=== PATIENT | male | born 1950 | race Caucasian/White ===

== ENCOUNTER 2017-01-27 07:30 | Day surgery (SDC) | payer BC ==
[~2017-01-27] VITALS: Ht 177.8 cm; Wt 80.0 kg
[~2017-01-27 07:30] MED LIST: BACTRIM DS DPS1 TAB PO; PERCOCET 7.5 DP1 TAB PO; PRILOSEC DPS20 MG PO; TYLENOL DPS325 MG PO
[2017-04-07] MEDS ORDERED: COMPAZINE10 MG PO (16:54)
[2017-04-07] MEDS ORDERED: PRILOSEC DPS20 MG PO (16:54)
[2017-04-07] MEDS ORDERED: BENADRYL-DPS50 MG PO ×2 (16:54→17:07)
[2017-04-07] MEDS ORDERED: KLOR-CON M2020 ME1 PO (17:02)
[2017-04-07] MEDS ORDERED: LOPRESSOR DPS50 MG PO (17:02)
[2017-04-07] MEDS ORDERED: DELTASONE DPS10 MG PO (17:02)
[2017-04-07] MEDS ORDERED: XARELTO20 MG PO (17:03)
[2017-04-07] MEDS ORDERED: HUMALOG KW200 UNIT/1 SQ (17:06)
== END 2017-01-27 11:08 | disposition home or self-care (01) ==
LOC: RAD.S 07:30 → EDSTATUS 09:00 → RAD.S 09:00
PROC: 05HM33Z Insertion of Infusion Device into Right Internal Jugular Vein, Percutaneous Approach (ICD-10-PCS; principal; 2017-01-27)
PROC: B513YZA Fluoroscopy of Right Jugular Veins using Other Contrast, Guidance (ICD-10-PCS; principal; 2017-01-27)
PROC: B543ZZA Ultrasonography of Right Jugular Veins, Guidance (ICD-10-PCS; principal; 2017-01-27)
DX: C67.9 Malignant neoplasm of bladder, unspecified (principal); I10 Essential (primary) hypertension; Z79.899 Other long term (current) drug therapy

== ENCOUNTER 2017-03-31 19:02 | Inpatient (IN) | payer BC ==
[~2017-03-31] VITALS: Ht 175.3 cm; Wt 76.5 kg
--- NOTE | ~2017-03-31 | ECH ---
Transthoracic Echocardiography Report (TTE) Demographics Patient Name LIBERTAD BROWN Date of Study 04/03/2017 L Patient Number [id number] Visit Number [id number] Date of 1950 Room Number 531 Accession Number [id number] Gender Male Age 66 year(s) Referring Babar Benitez Field Hand Physician Dania Tejeda Physician Interpreting Dania THOMAS Forest Logistics Manager Physician Libertad Supervising Ordering Physician Miguel Ángel Valdez MD, MD/P Nurse Stress Dam Tender Conclusions Contractility Score Summary At rest the following contractility abnormalities were noted: Hypokinesis of the Apical septal, the Apical lateral, the Apical anterior and the Apical cap segments. Contractility of all other segments appeared normal. Summary Technically fair exam. The estimated left ventricular ejection fraction is 60-65%. Mild segmental wall motion abnormalities noted. Mild left ventricular hypertrophy. No significant valvular abnormalities. Recommendation The patient was given the results of the exam during their hospital stay. Procedure Type of Study TTE procedure:Echo Complete SF. Procedure Date Date: 04/03/2017 Start: 11:06 AM Technical Quality: Adequate visualization Indications:Paroxysmal a-fib. Appropriate Use Criteria: 9 Height: 69 inches Weight: 166 pounds BSA: 1.91 m Rhythm: Atrial fibrillation HR: 78 bpm BP: 117/78 mmHg M-Mode/2D Measurements LV Diastolic Dimension: 3.73 cm LV Systolic Dimension: 3.02 cm LV Septum Diastolic: 1.09 cm LV PW Diastolic: 1.28 cm AO Root Dimension: 2.92 cm Cardiac Output: 3.56 l/min LA Dimension: 2.48 cm Cardiac Index: 1.86 l/min*m RV Diastolic Dimension: 2.5 cm LA volume index: 24 ml/m LVOT: 1.91 cm LVOT VTI: 15.92 cm RV Base: 3.96 cm LV Stroke volume: 45.59 ml RV Mid: 2.49 cm LV Stroke volume index: 23.87 ml/m RV Length: 6.1 cm TAPSE: 1.5 cm TDI-S': 0.9 cm/s Doppler Measurements AV Peak Velocity: 1 m/s MV Peak E-Wave: 0.48 m/s AV Peak Gradient: 4 mmHg MV Peak A-Wave: 1.08 m/s AV Mean Gradient: 2.49 mmHg MV E/A Ratio: 0.45 LVOT Peak Velocity: 0.95 m/s AV Area (Continuity):3.38 cm TR Velocity:2.28 m/s PV Peak Velocity: 0.95 m/s TR Gradient:20.82 mmHg PV Peak Gradient: 3.64 mmHg Estimated RAP:3 mmHg Estimated PASP: 23.82 mmHg Estimated RVSP: 24 mmHg RA Area: 11.54 cm Findings Left Ventricle The left ventricle is normal in size . Mild left ventricular hypertrophy. Diastolic function indeterminate due to patient's arrhythmia. Right Ventricle Normal right ventricle structure and function. Left Atrium Normal left atrial size. Right Atrium Normal right atrial size. Mitral Valve Normal mitral valve structure and function. Trivial mitral regurgitation by color Doppler. Aortic Valve Normal aortic valve structure and function. Tricuspid Valve Normal tricuspid valve structure and function. Trivial tricuspid regurgitation by color Doppler. Pulmonic Valve Normal pulmonic valve structure and function. Pericardial Effusion No evidence of pericardial effusion. Miscellaneous Visualized portions of the aortic root and ascending aorta appear normal in size. Pleural Effusion No evidence of pleural effusion. Contractility Score LV regional wall motion:(0-Non visualized 1-Normal 2-Hypokinesis 3-Akinesis 4-Dyskinesis 5-Aneurysm) Signature
--- NOTE | 2017-04-01 20:34 | ER ---
ADMIT: 03/31/2017 RM/LOC: ER [facility] MR#: [id number] [address] [facility] [address] [place], [place] [address] LIBERTAD BROWN [address] [place] [address] Emergency Room Report SEX: M AGE: 66 : 1950 DATE: 03/31/2017 The patient is a 66-year-old male, recently diagnosed with bladder cancer. He is also diabetic and at this point, checked his blood sugar noticing that he was not acting but looking different and it was above 500, her glucometer was not measuring the right numbers. She states that his face is swollen, his neck is swollen as well and he has high blood sugar. PAST MEDICAL HISTORY: Includes diabetes type 2, renal disease with a bladder cancer. He has been seeing Dr. Lau and have been receiving chemotherapy in the form of cisplatin and Gemzar. He has bilateral knee surgery, a tumor removed from his bladder. He is taking Prilosec, metformin, dexamethasone, and Zofran. ALLERGIES: HE HAS NO ALLERGIES. PHYSICAL EXAMINATION: VITAL SIGNS: Blood pressure 121/97, and varies up to 135/110, heart rate is 107, respirations 17, temp is 97.2, and O2 sats 96%. GENERAL: Mildly anxious. and son at bedside. Alert. HEENT: Normal inspection. SKIN: Cyanotic color. Neck and chest with some rubor as well. RESPIRATION: Chest is nontender. CVS: Tachycardia. NEUROLOGIC: Oriented x4. Mood and affect appropriate. ABDOMEN: Nontender. Not distended. No bruits on the carotids. LABS: Started sepsis workup due to his medical history of cancer. CBC is 5.7 with a hemoglobin of 12 and hematocrit is 35.5. His sodium is 131, BUN is 33, glucose 680, creatinine is 1.0, GFR 58, lactic acid is 2.0. Troponin 0.015 with a CK-MB of 1.6, CK 51. His procalcitonin is 0.67. His urine has ketones 1+ and glucose more than 1000. His pH is 7.548, pCO2 of 25.9, and PO2 of 68. His EKG shows normal sinus rhythm at [address] Jang notified he will finish up with this disposition of the patient as he went for a CTA to rule out PE, and we have no report back. The patient has been receiving fluids. At this time, he is oriented and has returned back to the room after the CT scanner. SACHA King / Jack Jang MD / modl JOB #: [id number] CC: Jack Jang MD, Attending Physician Carter Eckert MD, Family Physician
--- NOTE | 2017-04-02 01:36 | ER ---
ADMIT: 03/31/2017 RM/LOC: ER [facility] MR#: [id number] [address] [place], [place] [address] LIBERTAD BROWN [address] [place] [address] Emergency Room Report SEX: M AGE: 66 : 1950 DATE: 03/31/2017 ADDENDUM: The patient was checked out to me by SACHA King, with final disposition. The patient's labs show he has a significant elevated glucose at this time at 680. He is not in DKA. The patient actually did not carry a definitive diagnosis of diabetes before tonight. He has been on chemo medications and getting dexamethasone with those dosings of his chemo drugs, and recently he has been having high blood sugars for the past several weeks. Apparently, he has been started on metformin within the last 2 weeks at 500 mg and just recently put on a 1000 in the last 24 hours. He comes in today with this generalized redness to his chest, neck, face, urinating a lot, and being thirsty. I discussed the case with Dr. Gonzalez, who is on this evening for Oncology, and does not believe the chemo drugs he is on would be causing elevated blood sugars to the level that we are seeing him now. At this point, with a long weekend coming up, I am not comfortable having the patient go home with a new onset diabetes requiring insulin, and he will be brought into the hospital. I spoke to Dr. Shetty as the patient is a [facility], who will be admitting the patient. DIAGNOSES: 1. New-onset diabetes. 2. Bladder cancer. Jack Jang MD/ gumaro JOB #: [id number] CC: Jack Jang MD, Attending Physician Carter Eckert MD, Family Physician
--- NOTE | 2017-04-03 11:44 | HP ---
ADMIT: 03/31/2017 RM/LOC: 531 [facility] MR#: [id number] [address] [facility] [address] [place], [place] [address] LIBERTAD BROWN [address] [place] [address] History and Physical SEX: M AGE: 66 : 1950 DATE OF SERVICE: CHIEF COMPLAINT: Elevated blood sugars, polyuria, polydipsia, and bladder cancer. HISTORY OF PRESENT ILLNESS: The patient is a 66-year-old white male, who is normally followed by Dr. Carter Eckert at the [facility]. He has recently been diagnosed with bladder cancer in 2016 and has been followed primarily by Dr. Mendez and Dr. Judi nichols in [place] at the Oncology Clinic. He has also had some guidance in his cancer treatment from [facility]. He had bladder surgery in December 2016 to remove the bladder cancer. He has had routine follow-ups and chemotherapy through the Oncology office. In fact, he has completed 7 of his 9 chemotherapy treatments with his last chemo being done on Monday of this past week. Over the past two weeks, the patient has noticed an increase in his thirst and urination. Along with this, he has been excessively fatigued and weak. He has noticed some facial and chest flushing as well. He has had about 20 pounds of weight loss in the past several weeks. His sugars have apparently been elevated when blood work has been done through the Cancer Clinic. He was recently started on metformin 500 mg daily for his elevated sugars. Upon evaluation in the emergency room last night, his sugars were 680. He is admitted for further evaluation and treatment of his hyperglycemia and newly diagnosed diabetes. PAST MEDICAL HISTORY: 1. The patient has had bladder cancer diagnosed in December 2016. 2. New/recently diagnosed type 2 diabetes. 3. Acid reflux. SURGICAL HISTORY: The patient has had previous bilateral quadriceps tendon repairs due to injuries. He has also had bilateral knee scopes. He has had cystoscopy with removal of bladder cancer in December 2016. MEDICATIONS: The patient has been on: 1. Prilosec 20 mg daily at home. 2. Most recently, he was started on metformin 500 mg daily for his elevated sugars. 3. He also uses dexamethasone and Zofran as needed following his chemotherapy treatments. ALLERGIES: NO KNOWN MEDICAL ALLERGIES. FAMILY HISTORY: The patient states parents both had coronary artery disease, and his mother had diabetes. SOCIAL HISTORY: The patient is and lives here in [place]. He is employed at [employer] and has been followed primarily by Dr. Carter Eckert as his regular physician. He is a former smoker who quit about 36 years ago, and is also a previous alcoholic who quit drinking about 36 years ago. ADMIT: 03/31/2017 RM/LOC: 531 [facility] MR#: [id number] [address] [place], [place] [address] [place] [address] History and Physical SEX: M AGE: 66 : 1950 REVIEW OF SYSTEMS: HEENT: The patient has had some blurry vision and visual changes over the past several weeks, but denies ear pain, headache, sore throat, or difficulty swallowing. PULMONARY: No shortness of breath, wheezing, or lung problems. CARDIAC: No history of heart disease. Denies hypertension. No chest pain or palpitations noted. GASTROINTESTINAL: Generalized weakness and poor appetite. He also has heartburn. No abdominal pain. No vomiting or diarrhea. ENDOCRINE: Recently reported elevated blood sugars with suspicion for diabetes. No history of thyroid problems. GENITOURINARY: He has had excessive urination over the past few weeks. No burning or pain. No hematuria. No prior kidney problems. He has had bladder cancer, diagnosed in December 2016. NEUROLOGIC: No history of strokes or seizures. HEMATOLOGIC: No history of blood clots or bleeding disorders. PSYCHIATRIC: No history of depression or anxiety. PHYSICAL EXAMINATION: VITAL SIGNS: Most recent vitals include a temperature of 97.1, pulse 95 and regular, respiratory rate 16, blood pressure 118/74, O2 saturations 97% on room air. GENERAL: The patient is alert and oriented. He answers questions appropriately. Does not appear to be in acute distress. HEENT: Ears clear bilaterally. Oropharynx moist without erythema or tonsillar enlargement. Pupils equally round and reactive to light and accommodation bilaterally. NECK: Supple without lymphadenopathy or JVD. No thyroid enlargement or tenderness. LUNGS: Clear bilaterally without wheezes, rhonchi, or rales. HEART: Regular rate and rhythm without murmur, rub, or gallop. ABDOMEN: Soft, nontender, and nondistended. No masses palpated. EXTREMITIES: With functional range of motion and normal strength. No clubbing, cyanosis, or edema. NEUROLOGIC: No focal deficits. LABORATORY AND X-RAY DATA: Admission EKG showed sinus rhythm without acute ST or T-wave changes. Urinalysis showed greater than 1000 mg/dL of glucose, and 1+ ketones. Urine culture pending. Admission ABG showed a pH of 7.441, pCO2 of 27.2, pO2 of 74.0. Admission sodium a little low at 131, potassium 3.9, BUN 33, creatinine 1.3, glucose 680, AST 26, ALT 48, magnesium 1.9. Creatine kinase 51, MB 1.6, relative index 3.1, troponin I less than 0.015. Lactic acid 2.0, procalcitonin 0.67, INR less than 1.00. Admission CBC showed a white count of 5.7, hemoglobin 12.0, platelet count 224. Chest x-ray showed no acute cardiopulmonary process. A small pulmonary nodule in the left upper lobe was noted. CT scan of the chest was done through the Emergency Department evaluation and showed no pulmonary embolism. There was a large hiatal hernia noted and a 7.4 mm noncalcified left upper lobe pulmonary nodule. Blood cultures pending. Repeat labs done the morning of 04/01, include a white blood cell count of 4.7, hemoglobin 10.6, platelet count 158. ADMIT: 03/31/2017 RM/LOC: 531 [facility] MR#: [id number] [address] [place], [place] [address] MIKHAILL[facility]ERT[facility] WRAY [address] [place] [address] History and Physical SEX: M AGE: 66 : 1950 Sodium 137, potassium 3.6, BUN 28, creatinine 1.1, glucose 300, AST 11, ALT 42, serum ketones negative. C-reactive protein less than 0.29. ASSESSMENT: 1. Bladder cancer (diagnosed December 2016). 2. Poorly controlled diabetes mellitus type 2 (recently diagnosed due to markedly elevated blood sugars). 3. Heartburn. 4. Mild renal insufficiency. 5. Left upper lobe pulmonary nodule (7.[address] scan of the chest). PLAN: The patient has been admitted for management of his blood sugars. Suspect all of his symptoms of weakness, fatigue, polydipsia, polyuria, weight loss have all been related to his markedly elevated blood sugars. We will check a hemoglobin A1c to assess his diabetes status. We will also start sliding scale insulin for his elevated glucose. Diabetic education will be provided to show him how to check his blood sugars at home and he will likely need to continue some sliding scale insulin at home. We will hydrate this patient with IV fluids and will have Oncology see him as well. Libertad Shetty MD/ gumaro JOB #: [id number] CC: Libertad Shetty, Attending Physician Libertad Shetty, Family Physician Carter Eckert MD
--- NOTE | 2017-04-04 06:48 | CO ---
ADMIT: 03/31/2017 RM/LOC: 531 [facility] MR#: [id number] [id number] [place], [place] [address] LIBERTAD BROWN [address] [place] [address] Consultation SEX: M AGE: 66 : 1950 DATE OF CONSULTATION: 04/03/2017 ATTENDING PHYSICIAN: Libertad Shetty CONSULTING PHYSICIAN: Libertad Najera MD REASON FOR CONSULTATION: Atrial fibrillation. HISTORY OF PRESENT ILLNESS: Libertad is a pleasant 66-year-old male, rather seen in consultation from Dr. Shetty regarding atrial fibrillation. Libertad has no prior cardiac history other than he said 12 years ago, he underwent evaluation at the [facility] with an [facility]ogram and stress test, all which were normal. He has been treated since December 2016 for bladder cancer and has been followed by Dr. Mendez and Dr. Lau. He has been undergoing chemotherapy. He has completed 7/9 chemotherapy sessions with the last one being done a week ago. He was admitted with a blood sugar of over 700 and hemoglobin A1c of over 12.4. He has been monitored here and was noted yesterday to be in atrial fibrillation a couple of times with rapid ventricular response. He spontaneously cardioverted back to sinus rhythm both times. He says, he was asymptomatic. He denied any shortness of breath. No lightheadedness. He said that, he did not sense his heart racing or beating irregular. He does have diabetes but denies any history of hypertension. PAST MEDICAL HISTORY: 1. History of bladder cancer, being undergoing chemotherapy since December 2016. 2. Diabetes mellitus type 2. 3. Gastroesophageal reflux disease. PAST SURGICAL HISTORY: History of bilateral quadriceps tendon repairs, bilateral knee scopes. He has had cystoscopy and removal of his bladder cancer in December 2016. MEDICATIONS: Now, he is on Glucophage 1000 mg b.i.d., Lopressor 25 mg b.i.d., Lovenox 80 mg q.12 hours, sliding scale insulin, Lasix 20 mg IV b.i.d., and Protonix b.i.d. ALLERGIES: NO KNOWN DRUG ALLERGIES. FAMILY HISTORY: He says, his father at age 66 of myocardial infarction. He says, his mother at age 74 of heart failure. SOCIAL HISTORY: He is . He lives here in [place]. I follow his in the Cardiology Clinic. He is employed at [employer]. He is a former smoker, quit about 36 years ago. Previous alcoholic, also quit 36 years ago. Denies any illicit drug use. REVIEW OF SYSTEMS: GENERAL: Denies any fever, chills, or sweats. He has had fatigue, undergoing the chemotherapy. ADMIT: 03/31/2017 RM/LOC: 531 [facility] MR#: [id number] [address] [place] [address] [place] [address] Consultation SEX: M AGE: 66 : 1950 HEENT: He has had some blurry vision with his elevated blood sugars. Denies any sore throat or difficulty swallowing. PULMONARY: Denies any shortness of breath. No wheezing. No cough. CARDIAC: Denies palpitations. Denies hypertension. No chest pain. GASTROINTESTINAL: He has had poor appetite and has history of heartburn. Denies any pain. No vomiting. No diarrhea. ENDOCRINE: Recently diagnosed diabetes. Denies any history of thyroid dysfunction. GENITOURINARY: Denies any dysuria or hematuria. He has had frequency. NEUROLOGIC: No history of TIA or strokes. HEMATOLOGIC: Denies any history of blood clots or bleeding disorders. PSYCHIATRIC: Denies any anxiety or depression. PHYSICAL EXAMINATION: VITAL SIGNS: Blood pressure 117/78, pulse 87, respirations 18, temperature 99.7, and oxygen 97% on room air. GENERAL: He is in no acute distress. He is alert, oriented, and appropriate. SKIN: He has a port in the right chest. EYES: Sclerae clear. No xanthelasmas. ENT: Oral mucosa is pink and moist. No jugular venous distention or carotid bruits. CHEST: Respirations are even and unlabored. Lungs are clear to auscultation. HEART: Regular rate and rhythm. Normal S1, S2. No murmurs, rubs or gallops. ABDOMEN: Soft and nontender. MUSCULOSKELETAL: Gait is normal. EXTREMITIES: He has everything normal. PSYCHIATRIC: Alert and oriented. Mood and affect are appropriate. DIAGNOSTIC DATA: EKG shows sinus rhythm this morning with no ST- or T-wave changes. Potassium is 3.2 this morning. Creatinine 1. Magnesium is 1.8. Platelets 95, hemoglobin 10.1, white blood cell count 8. CT of his chest shows a 7.4-mm noncalcified left upper lobe nodule. IMPRESSION AND PLAN: 1. Paroxysmal atrial fibrillation. This is a new onset. However, he is asymptomatic. This was just identified incidentally on vitals in telemetry. He does have a history of palpitations, but says he did not have any yesterday. The only concerning thing is his [id number]. On chest x-ray, it does look like it extends into his right atrium, which may certainly be exacerbating his atrial fibrillation. We will check an ADMIT: 03/31/2017 RM/LOC: 531 [facility] MR#: [id number] [address] [place] [id number] LIBERTAD BROWN [address] [place] [address] Consultation SEX: M AGE: 66 : 1950 echocardiogram for any valvular dysfunction, and hopefully, view the Qipinh-I-Jvui and how far into the right atrium it goes. This may need retracted somewhat, and Surgery has been consulted. We will also check thyroid function studies. We will start him on beta-saniya, and he is on therapeutic Lovenox now for anticoagulation. 2. Bladder cancer, undergoing chemotherapy. 3. Diabetes mellitus type 2, per Dr. Shetty. 4. Hypokalemia, replacing. We will also give him some magnesium with his magnesium being 1.8. Given his family history of diabetes and new atrial fibrillation, we will do an ischemic evaluation in the future also. Thank you for allowing us to participate in the care of your patient. We will follow along and amend our plan as his care progresses. Libertad Najera MD/ gumaro JOB #: [id number] CC: Libertad Shetty, Attending Physician Libertad Shetty, Family Physician
[2017-04-07] MEDS ORDERED: BENADRYL-DPS50 MG PO ×2 (16:54→17:07)
[2017-04-07] MEDS ORDERED: COMPAZINE10 MG PO (16:54)
[2017-04-07] MEDS ORDERED: PRILOSEC DPS20 MG PO (16:54)
[2017-04-07] MEDS ORDERED: KLOR-CON M2020 ME1 PO (17:02)
[2017-04-07] MEDS ORDERED: LOPRESSOR DPS50 MG PO (17:02)
[2017-04-07] MEDS ORDERED: DELTASONE DPS10 MG PO (17:02)
[2017-04-07] MEDS ORDERED: XARELTO20 MG PO (17:03)
[2017-04-07] MEDS ORDERED: HUMALOG KW200 UNIT/1 SQ (17:06)
--- NOTE | 2017-04-12 06:36 | CO ---
ADMIT: 03/31/2017 RM/LOC: 531 [facility] MR#: [id number] [address] [address] LIBERTAD BROWN [address] [place] [address] Consultation SEX: M AGE: 66 : 1950 DATE OF CONSULTATION: 04/05/2017 ATTENDING PHYSICIAN: Libertad Shetty CONSULTING PHYSICIAN: Carter Mullen MD CHIEF COMPLAINT: Diffuse acute onset edema head, neck, and upper torso including upper extremity. He complains of severe head pressure. Feels like his eyes were going to pop out, cause of which at this point is yet undetermined. His significant history includes bladder cancer, presently undergoing chemotherapy, recent onset of hyperglycemia, and institution of metformin therapy. PHYSICAL EXAMINATION: ENT: Shows conjunctivae are clear. No conjunctival edema. His ear canals, TMs, and middle ears are clear. No middle ear effusion. Nose, mouth, and pharynx good symmetry, structure, and function. No edema. No asymmetry. Tongue mobility normal. Cranial nerve function grossly intact. NECK: Diffuse bilateral edema without pitting, without palpable mass, thyromegaly, or nodules. There is edema of the upper extremities, mild edema in the region of the clavicle. The left upper extremity is slightly more edematous than right (the patient states the right arm has reduced within the past 24 hours). REVIEW OF DATA: CT scanning performed of head, neck, and chest, which I reviewed with Radiology and could not identify distinct ENT abnormality that would account for the edema and symptoms. IMPRESSION: Diffuse acute onset edema upper torso upper extremity head and neck without identifiable ENT cause. Follow-up examination on 04/05 shows the patient to be much more comfortable. Symptoms significantly improved. He is smiling in better spirits today due to his improved symptomatology. No changes in his medical course indicated from ENT standpoint. May return to ENT adelia Mullen MD/ gumaro JOB #: [id number] CC: Libertad Shetty, Attending Physician Libertad Shetty, Family Physician
--- NOTE | 2017-04-12 08:15 | CO ---
ADMIT: 03/31/2017 RM/LOC: [address] [facility] MR#: [id number] [id number] [place], [place] [id number] [address] BROWN [address] [place] [address] Consultation SEX: M AGE: 66 : 1950 DATE OF CONSULTATION: 04/01/2017 ATTENDING PHYSICIAN: Libertad Shetty CONSULTING PHYSICIAN: Moncho Gonzalez MD REASON FOR CONSULTATION: Bladder cancer and elevated blood sugar. HISTORY OF PRESENT ILLNESS: The patient is a 66-year-old male, who was admitted to the hospital yesterday with a blood sugar of 680, which was remarkably worse than he had been in recent weeks in our clinic. The patient is followed by Dr. Lau for his bladder cancer that is being treated currently with neoadjuvant chemotherapy with cisplatin and gemcitabine. He is ready to start his 3rd cycle in a few days that would then be his last planned cycle followed then by a cystectomy. He presented to the emergency room with elevated blood sugars and frequent urination. He was found to have a blood sugar of 680 and suspicion of fairly significant volume depletion. He is being treated now with aggressive supportive care measures. He complains of just feeling very fatigued and kind of achy all over. He is frustrated with this new diagnosis of diabetes. He has had some trouble getting all of his fluid then at home. He denies any diarrhea symptoms. He has had no recent fevers. PAST MEDICAL HISTORY: Diabetes mellitus, bladder cancer, and acid reflux. MEDICATIONS: Reviewed in chart. ALLERGIES: REVIEWED IN CHART. SOCIAL HISTORY: The patient is . He works at [employer]. He quit smoking a long time ago. FAMILY HISTORY: He is not aware of any recurrent hereditary malignancies in the family. REVIEW OF SYSTEMS: See HPI. Otherwise, complete review of systems was obtained and is negative. PHYSICAL EXAMINATION: VITAL SIGNS: Temp 98, pulse 97, respirations 18, blood pressure 128/92. GENERAL: The patient is in no acute distress and provides me good history. He is alert and oriented. HEENT: Mucous membranes are moist. No oral lesions are seen. Extraocular muscles are intact. Pupils are reactive and symmetrical. NECK: Without adenopathy or JVD. HEART: Regular rate and rhythm without murmur. LUNGS: Clear to auscultation bilaterally without any crackles or wheezes. ABDOMEN: Soft, nontender, nondistended with positive bowel sounds throughout. No organomegaly is appreciated. ADMIT: 03/31/2017 RM/LOC: 531 [facility] MR#: [id number] [facility] [address] [address] [place] [address] Consultation SEX: M AGE: 66 : 1950 EXTREMITIES: No edema, rashes, lesions, or adenopathy is appreciated. LABORATORY DATA: Blood sugar yesterday was 680. It is improved today to 300. Creatinine was 1.3 and is now 1.1. Today's white count 4.7, hemoglobin 10.6, platelets 158, hemoglobin A1c is 12. Reviewing of his CTA in the emergency room did show a 7 mm left upper lung nodule that is likely a granuloma, but will need follow up. IMPRESSION: 1. Bladder cancer on chemotherapy with cisplatin and gemcitabine. 2. New onset diabetes mellitus. 3. Questionable lung nodule. RECOMMENDATIONS: I agree with his current management. I would plan to treat him aggressively with hydration and continued supportive care. I will follow him during this stay and decide on the timing of his next cycle of chemotherapy. We will at some point need follow up on the CT scan for this small lung nodule. Hopefully, we can get his blood sugars under control over the next month and have a better outcome from his planned bladder surgery. I appreciate this consultation. We will continue to follow along on this patient's progress. Moncho Gonzalez MD/ gumaro JOB #: [id number] CC: Libertad Shetty, Attending Physician Libertad Shetty, Family Physician
--- NOTE | 2017-05-21 14:58 | DS ---
ADMIT: 03/31/2017 RM/LOC: [address] [facility] MR#: [id number] [id number] [place], [place] [id number] JUAN[address] PARTIDA [address] [place] [address] General Discharge Summary SEX: M AGE: 66 : 1950 ADMISSION DATE: 03/31/2017 DISCHARGE DATE: 04/06/2017 PRIMARY DIAGNOSES: 1. Bladder cancer. 2. Poorly controlled diabetes mellitus, type 2 (hemoglobin A1c 12.4). 3. Paroxysmal atrial fibrillation. 4. Hypokalemia. 5. Heartburn. 6. Left upper lobe pulmonary nodule. 7. Renal insufficiency. 8. Peripheral edema/angioedema (possible reaction to metformin). CONSULTATIONS DURING THIS HOSPITALIZATION: 1. Oncology with Moncho Gonzalez MD. 2. Cardiology with Tramaine Najera MD. 3. Ear, Nose, and Throat with Carter Mullen MD. HISTORY OF PRESENT ILLNESS: The patient is a 66-year-old white male, who is normally followed by Dr. Carter Eckert at the [facility]. He had recently been diagnosed with bladder cancer in early 2016 and had been followed primarily by Dr. Mendez of Urology and Dr. Lau of Oncology here in [place]. He had had some guidance in his cancer treatment from [facility]. He had bladder surgery in December 2016 to remove the bladder cancer. He had routine followups and chemotherapy through the Oncology office. He had completed 7 of his 9 chemotherapy treatments with his last chemotherapy treatment being done 1 week prior to this admission. The patient had noticed 2 weeks of increased thirst and urination. He has also become excessively fatigued and weak. Some facial flushing and chest flushing were noted. 20 pounds of weight loss had occurred in the past few weeks as well. He was being followed up in the Cancer Clinic and some lab work had been drawn. Evaluation showed his blood sugar to be markedly elevated, and he was sent to the emergency room for evaluation. In the emergency room, his sugars were 680. He was admitted for further evaluation and treatment of his hyperglycemia and diabetes. LABORATORY AND X-RAY: Admission labs showed an EKG with sinus rhythm and no acute ST or T-wave changes. Urinalysis showed greater than 1000 mg/dL of glucose and 1+ ketones. ABG showed a pH of 7.441, pCO2 of 27.2, and PO2 of 74.0. Admission sodium a little low at 131, potassium 3.9, BUN 33, creatinine 1.3, glucose 680, AST 26, ALT 48, magnesium 1.9, creatine kinase 51, MB 1.6, relative index 3.1, troponin I less than 0.015. Lactic acid was 2.0, procalcitonin 0.67, INR less than 1.00. White blood cell count at time of admission was 5.7, hemoglobin 12.0, and platelet count 224. Chest x-ray showed no acute cardiopulmonary process. A small pulmonary nodule in the left upper lobe was noted. CT scan of the chest was done through the emergency department and showed no pulmonary embolism. A large hiatal hernia was noted, and a 7.4 mm noncalcified left upper lobe pulmonary nodule noted. An echocardiogram was done on 04/03 and showed an ejection fraction of 60% to ADMIT: 03/31/2017 RM/LOC: 531 [facility] MR#: [id number] [address] [place] [id number] [address] BROWN [facility] [place] [address] General Discharge Summary SEX: M AGE: 66 : 1950 65%. No significant valve abnormalities noted. Venous Dopplers of the bilateral upper extremities done on 04/01, showed no blood clots. CT scan of the neck with contrast done on 04/04/2017, showed no suspicious adenopathy in the right or left neck and no suspicious findings within the airway. There were edematous changes in the soft tissues of the neck. CT scan of the abdomen, chest, and pelvis done on 04/04, showed a 9 mm left upper lobe pulmonary nodule. Some bilateral pleural effusions were noted as well as a small pericardial effusion. The abdomen and pelvis were essentially negative without acute findings. CT scan of the head done on 04/04 was negative/normal. CTA of the chest done on 03/31, showed no pulmonary embolism. Additional pertinent labs included a urine culture from 04/02 that was negative. Blood cultures drawn on 03/31/2017, showed no growth after 5 days and was finalized on 04/06/2017. A free T3 level was 1.9, free T4 level 1.27, random cortisol 9.16, hemoglobin A1c 12.4, TSH 1.030. Blood sugars were monitored closely during this hospitalization. Labs prior to discharge on 04/06 included a sodium of 142, potassium 3.4, BUN 23, creatinine 1.0, alkaline phosphatase 94, AST 15, ALT 30, magnesium 1.9. Lactic acid normal at 1.3. Procalcitonin level 0.14. White blood cell count prior to discharge was 17.6, hemoglobin 8.8, and platelet count 108. HOSPITAL COURSE: The patient was admitted to the hospital on 03/31/2017 with hyperglycemia as the primary diagnosis. The patient was discovered to have a blood sugar of 680 at time of admission. He was placed on IV normal saline, metformin 1000 mg b.i.d., and high-dose Humalog sliding scale insulin protocol. Oncology was consulted because of his previous bladder cancer diagnosis. Diabetic education and teaching was ordered at the time of admission as well. Lovenox was ordered for DVT prophylaxis at time of admission. His metformin was held following administration of IV contrast. The metformin was held for 48 hours. Hemoglobin A1c was drawn at time of admission to assess his diabetes status. Hemoglobin A1c was elevated at 12.4, giving him poorly controlled diabetes. This is likely a combination of his medications and chemotherapy. Venous Dopplers of the upper extremities were ordered because of fluid retention in the upper chest, neck, and face. No DVTs noted within the upper extremity system. Potassium became a little low on 04/02 and was replaced with IV potassium. IV Lasix was given due to the peripheral edema of the arms and neck. Cardiology was asked to see this patient due to tachycardia and atrial fibrillation found on the potline monitor. Cardiology was consulted and ordered Lopressor 25 mg b.i.d. as well as an echocardiogram. Echocardiogram was essentially unremarkable/normal. He was already on anticoagulation. The patient was educated thoroughly about sliding-scale insulin and giving his own insulin at home. was also educated. The patient continued to have complaints of neck, face, and upper chest swelling and pressure. ENT was consulted to evaluate this further. CT scans of the neck, chest, abdomen, and pelvis were ordered. No masses or adenopathy were noted in the neck, chest, abdomen, or pelvis to explain the edema. It was felt that he possibly could be having an allergic reaction to his metformin, which was the only new medication that had recently been started. The metformin was discontinued on 04/05/2017, and the patient was ADMIT: 03/31/2017 RM/LOC: 531 [facility] MR#: [id number] [address] [place] [id number] [address] BROWN [address] [place] [address] General Discharge Summary SEX: M AGE: 66 : 1950 started on Benadryl 50 mg q.6 hours and the prednisone taper as well. Sugars were monitored closely while on the prednisone taper. By 04/06/2017, the facial neck and upper extremity swelling was markedly improved. It was thought that this was likely a result of a reaction to the metformin. He had no further fevers, chills, shortness of breath, chest pain, nausea, or vomiting. He was doing quite well and was set up to be discharged to home in very stable condition on 04/06/2017. DISCHARGE INSTRUCTIONS: The patient was discharged to home on 04/06/2017. MEDICATIONS AT TIME OF DISCHARGE: Included: 1. Benadryl 50 mg every 6 hours as needed. 2. Prednisone 60 mg daily for 3 days, 40 mg daily for 3 days, 20 mg daily for 3 days, and 10 mg daily for 3 days. 3. Potassium 40 mEq b.i.d. 4. Lopressor 50 mg b.i.d. 5. Xarelto 20 mg daily for anticoagulation and atrial fibrillation. 6. Humalog FlexPen sliding scale insulin per high-dose regimen. 7. Omeprazole 20 mg b.i.d. He is to remain on a diabetic diet. Follow up with Oncology in 1 week, Cardiology in 1 month, and his primary care physician, who is Dr. Carter Eckert, in 7 to 10 days. Tramaine Shetty MD/ gumaro JOB #: [id number] CC: Tramaine Shetty MD, Attending Physician Tramaine Shetty MD, Family Physician MD Carter Mckeon MD Douglas Kosmicki, MD
== END 2017-04-06 12:30 | disposition home or self-care (01) | DRG 638 ==
LOC: ER 19:02 → 5MS 22:08
PROVIDERS: ADMIT Family Medicine
DX: E11.65 Type 2 diabetes mellitus with hyperglycemia (principal); E87.2 Acidosis; C67.9 Malignant neoplasm of bladder, unspecified; I48.0 Paroxysmal atrial fibrillation; E83.42 Hypomagnesemia; E86.9 Volume depletion, unspecified; T78.3XXA Angioneurotic edema, initial encounter; E87.6 Hypokalemia; T38.3X5A Adverse effect of insulin and oral hypoglycemic [antidiabetic] drugs, initial encounter; K21.9 Gastro-esophageal reflux disease without esophagitis; R60.9 Edema, unspecified; K44.9 Diaphragmatic hernia without obstruction or gangrene; R91.1 Solitary pulmonary nodule; N28.9 Disorder of kidney and ureter, unspecified; Z79.84 Long term (current) use of oral hypoglycemic drugs; Z82.49 Family history of ischemic heart disease and other diseases of the circulatory system; Z87.891 Personal history of nicotine dependence